=== PATIENT | male | born 1935 | race Two or more races ===

== ENCOUNTER → 2018-10-09 | Emergency (ER) | payer OTHER ==
[~2018-10-09] VITALS: Ht 157.5 cm; Wt 752.1 kg
== END | disposition home or self-care (01) ==
LOC: ER 06:36
DX: K57.30 Diverticulosis of large intestine without perforation or abscess without bleeding (principal); R10.84 Generalized abdominal pain

== ENCOUNTER → 2020-05-26 11:11 | Outpatient (CLI) | payer OTHER ==
[~2020-05-26 11:11] MED LIST: HYDROCHLOROTHIA25 MG PO; KAPVAY0.1 MG PO; SIMVASTATIN80 MG PO; TAMS0.4C PO; TENORMIN25 MG PO; ZYLOPRIM300 MG PO
== END | disposition home or self-care (01) ==
LOC: PPH VACUNA 11:11
PROVIDERS: ATTEND Emergency Medicine Pediatric Emergency Medicine
DX: Z23 Encounter for immunization (principal)

== ENCOUNTER → 2020-06-16 | Outpatient (CLI) | payer OTHER | END | disposition home or self-care (01) | LOC: PPH VACUNA | PROVIDERS: ATTEND Emergency Medicine Pediatric Emergency Medicine | DX: Z23 Encounter for immunization (principal) ==

== ENCOUNTER 2020-06-21 21:10 | Emergency (ER) | payer OTHER ==
[~2020-06-21] VITALS: Ht 157.5 cm; Wt 76.7 kg
[2020-06-21] MEDS ORDERED: KAPVAY0.1 MG PO ×2 (21:35→21:39)
[2020-06-21] MEDS ORDERED: HYDROCHLOROTHIA25 MG PO (21:37)
[2020-06-21] MEDS ORDERED: TENORMIN25 MG PO (21:37)
[2020-06-21] MEDS ORDERED: ZYLOPRIM300 MG PO (21:37)
[2020-06-21] MEDS ORDERED: SIMVASTATIN80 MG PO (21:38)
[2020-06-21] MEDS ORDERED: TAMS0.4C PO (21:39)
== END 2020-06-22 01:12 | disposition home or self-care (01) ==
LOC: ER 21:10
DX: N41.0 Acute prostatitis (principal); K62.89 Other specified diseases of anus and rectum

== ENCOUNTER 2020-06-22 03:24 | Emergency (ER) | payer OTHER ==
[~2020-06-22] VITALS: Ht 157.5 cm; Wt 76.7 kg
== END 2020-06-22 05:33 | disposition home or self-care (01) ==
LOC: ER 03:24
DX: R33.8 Other retention of urine (principal)

== ENCOUNTER 2021-04-01 15:10 | Outpatient (CLI) | payer OTHER | END 2021-04-01 15:20 | disposition home or self-care (01) | LOC: PPH VACUNA 15:10 | PROVIDERS: ATTEND Emergency Medicine Pediatric Emergency Medicine | DX: Z23 Encounter for immunization (principal) ==

== ENCOUNTER 2021-06-23 10:42 | Emergency (ER) | payer OTHER ==
[~2021-06-23] VITALS: Ht 165.1 cm; Wt 72.6 kg
[2021-06-23] MEDS ORDERED: MECLIZINE HCL25 MG PO (13:24)
== END 2021-06-23 13:37 | disposition home or self-care (01) ==
LOC: ER 10:42
DX: R42 Dizziness and giddiness (principal); Z88.6 Allergy status to analgesic agent